=== PATIENT | female | born 1980 | race Caucasian/White ===

== ENCOUNTER 2021-08-14 00:35 | Emergency (ER) | payer OTHER ==
[~2021-08-14] VITALS: Ht 165.1 cm; Wt 72.6 kg
[2021-08-14 01:10] VITALS: BP 235/110
[2021-08-14] MEDS ORDERED: ACETAMINOPHEN EXTRA STRENGTH 500 MG TAB PO ONE (04:45)
[2021-08-14] MEDS ORDERED: ACETAMINOPHEN EXTRA STRENGTH 500 MG TAB ONE (05:53)
[2021-08-14] MEDS ORDERED: MORPHINE SULFATE 4 MG/ML SYR IVP ONE (07:00)
[2021-08-14 09:00] LABS: BASOPHILS % (AUTO) 0.5 % (0.0-2.0); EOSINOPHILS # (AUTO) 0.3 K/uL (0-0.4); EOSINOPHILS % (AUTO) 3.7 % (0.0-4.0); HEMATOCRIT 39.4 % (36-48); HEMOGLOBIN 13.7 g/dL (12.0-16.0); LYMPHOCYTES # (AUTO) 2.1 K/uL (2.5-16.5); LYMPHOCYTES % (AUTO) 23.5 % (20.5-51.1); MEAN CORPUSCULAR HEMOGLOBIN 29 pg (27-31); MEAN CORPUSCULAR HGB CONC 35 g/dL (33-37); MEAN CORPUSCULAR VOLUME 84.4 fL (80-94); MONOCYTES # (AUTO) 0.7 K/uL (0.8-1.0); MONOCYTES % (AUTO) 8.3 % (1.7-9.3); NEUTROPHILS # (AUTO) 5.7 K/uL (1.8-7.7); PLATELET COUNT (AUTO) 365 K/uL (140-450); RED BLOOD CELL COUNT(AUTO) 4.67 MIL/uL (4.20-5.40); RED CELL DISTRIBUTION WIDTH 13.5 % (11.6-13.7); WHITE BLOOD COUNT (AUTO) 8.9 K/uL (4.8-10.8)
[2021-08-14] MEDS ORDERED: MORPHINE SULFATE 4 MG/ML SYR ONE (09:27)
[2021-08-14 09:29] LABS: ALBUMIN 3.9 g/dL (3.4-5.0); CARBON DIOXIDE 24.4 mmol/L (21-32); CREATININE 0.6 mg/dL (0.6-1.3); POTASSIUM 3.4 mmol/L (3.5-5.1); TOTAL BILIRUBIN 0.3 mg/dL (0.0-1.0)
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
--- NOTE | 2021-08-14 11:30 | NUR ---
CT CONSENT OBTAINED
[2021-08-14 14:18] VITALS: BP 153/89
--- NOTE | 2021-08-14 14:18 | NUR ---
Patient discharged with v/s stable. Written and verbal after care instructions given and explained. Patient verbalized understanding. Ambulatory with steady gait. All questions addressed prior to discharge. Advised to follow up with PMD.
== END 2021-08-14 14:18 | disposition home or self-care (01) ==
LOC: MED 00:35
DX: S16.1XXA Strain of muscle, fascia and tendon at neck level, initial encounter (principal); S63.92XA Sprain of unspecified part of left wrist and hand, initial encounter; S50.811A Abrasion of right forearm, initial encounter; R10.9 Unspecified abdominal pain; Z88.8 Allergy status to other drugs, medicaments and biological substances; V49.49XA Driver injured in collision with other motor vehicles in traffic accident, initial encounter; Y93.89 Activity, other specified; Y92.89 Other specified places as the place of occurrence of the external cause; Y99.8 Other external cause status
CPT/HCPCS: 36415; 70450; 70496; 70498; 71046; 71250; 73120; 74176; 80053; 85025; 96372; 99285; J2270; Q9967